=== PATIENT | female | born 1960 | race African-American/Black ===

== ENCOUNTER → 2017-05-14 | Outpatient (CLI) | payer OTHER | LOC: BICMAMMO 13:32 | DX: R92.2 Inconclusive mammogram (principal) | CPT/HCPCS: 77063; 77067 ==

== ENCOUNTER 2017-05-21 13:49 | Outpatient (CLI) | payer OTHER | END 2017-05-21 13:50 | disposition home or self-care (01) | LOC: BICMAMMO 13:49 | PROVIDERS: ATTEND Family Medicine | DX: R92.2 Inconclusive mammogram (principal) | CPT/HCPCS: 77066; G0279 ==

== ENCOUNTER 2017-11-20 14:02 | Outpatient (CLI) | payer OTHER | END 2017-11-20 14:03 | disposition home or self-care (01) | LOC: BICULT 14:02 | DX: R92.8 Other abnormal and inconclusive findings on diagnostic imaging of breast (principal) ==

== ENCOUNTER 2017-12-31 11:05 | Emergency (ER) | payer OTHER ==
[2017-12-31 11:58] LABS: Bilirubin Negative (Negative); Blood, Urine Trace (Negative); Clarity CLEAR (Clear); Glucose, Urine (Dipstick) >=1000 mg/dL (Negative); Leukocyte Negative (Negative); Nitrite Negative (Negative); Protein, Urine (Dipstick) 30 mg/dL (Neg-Trace); Specific Gravity, Urine 1.013 (1.002-1.036)
[2017-12-31 12:04] LABS: Bacteria/HPF None Seen HPF (None Seen); Hyaline Casts/LPF 0-3 HYALINE CAST LPF (0-3 Hyaline); Squamous Epithelial 0-3 HPF (0-3); WBC/HPF None Seen HPF (0-3)
[2017-12-31 12:13] LABS: #Basophils 0.1 thou/uL (0.0-0.2); #Eosinphils 0.2 thou/uL (0.0-0.7); #Lymphocytes 3.7 thou/uL (1.20-3.40); #Monocytes 0.9 thou/uL (0.11-0.59); #Neutrophils 8.2 thou/uL (1.40-6.50); %Basophils 0.7 % (0.0-1.0); %Eosinophils 1.3 % (0.0-10.0); %Lymphocytes 28.2 % (21.0-51.0); %Monocytes 7.1 % (0.0-10.0); %Neutrophils 62.7 % (42.0-75.0); Hemoglobin 13.4 g/dL (12.0-16.0); Mean Corpuscular Hemoglobin 30.1 pg (27.0-31.0); Mean Platelet Volume 9.4 fL (7.4-10.4); Platelet Count 284 thou/uL (130-400); RBC Distribution Width 13.8 % (11.5-14.5); Red Blood Cell (RBC) Count 4.44 mill/uL (4.20-5.40)
[2017-12-31 12:41] LABS: ALT (SGPT) 12 U/L (8-55); AST (SGOT) 14 U/L (5-34); Albumin 4.4 g/dL (3.5-5.0); Alkaline Phosphatase 117 U/L (40-150); Anion Gap 14 mmol/L (10-20); BUN (Urea Nitrogen) 6 mg/dL (9.8-20.1); Bilirubin, Total 0.4 mg/dL (0.2-1.2); Calc. Creatinine Clearance 0 mL/min (70-130); Calcium 9.5 mg/dL (7.8-10.44); Carbon Dioxide 22 mmol/L (22-29); Chloride 104 mmol/L (98-107); Estimated GFR-MDRD 89; Globulin 3.6 g/dL (2.4-3.5); Glucose 265 mg/dL (70-105); Lipase 9 U/L (8-78); Magnesium 2.1 mg/dL (1.6-2.6); Phosphorus 3.1 mg/dL (2.3-4.7); Potassium 4.2 mmol/L (3.5-5.1); Sodium 136 mmol/L (136-145)
--- NOTE | 2017-12-31 13:25 | RAD ---
CHEST TWO VIEWS: 12/31/2017 PROVIDED CLINICAL HISTORY: Cough. COMPARISON: 04/06/2016 FINDINGS: The cardiac and mediastinal silhouette are within normal limits. The lungs appear clear. No pleural fluid or pneumothorax apparent. IMPRESSION: No evidence for an acute cardiopulmonary process. POS: [facility]
--- NOTE | 2018-01-03 15:01 | EKG ---
Test Reason : ABD PAIN Blood Pressure : / mmHG Vent. Rate : 086 BPM Atrial Rate : 086 BPM P-R Int : 170 ms QRS Dur : 068 ms QT Int : 368 ms P-R-T Axes : 052 -25 057 degrees QTc Int : 440 ms Sinus rhythm with marked sinus arrhythmia Left atrial enlargement Low voltage QRS Cannot rule out Anteroseptal infarct , age undetermined Biatrial enlargement Abnormal ECG Confirmed by JOHNNY MEIER, JOSUÉ Bui ([id number]), manager editorial [place] REESE ([id number]) on 01/03/2018 3:00:59 PM Referred By: Confirmed By:JOSUÉ TURNER MD
== END 2017-12-31 13:42 | disposition home or self-care (01) ==
LOC: ERS 11:05
DX: E11.65 Type 2 diabetes mellitus with hyperglycemia (principal); E78.5 Hyperlipidemia, unspecified; F31.9 Bipolar disorder, unspecified; F41.9 Anxiety disorder, unspecified; F17.210 Nicotine dependence, cigarettes, uncomplicated; Z79.84 Long term (current) use of oral hypoglycemic drugs; Z79.899 Other long term (current) drug therapy
CPT/HCPCS: 36416; 71046; 80053; 81003; 81015; 82010; 83690; 83735; 84100; 85025; 93005; 96360

== ENCOUNTER 2018-02-10 13:34 | Outpatient (CLI) | payer OTHER ==
--- NOTE | 2018-02-10 15:00 | RAD ---
LEFT KNEE FOUR VIEWS: HISTORY: Knee pain. COMPARISON: Knee radiographs from 2011. FINDINGS: No acute fracture or malalignment. Satisfactory appearance of left knee arthroplasty. IMPRESSION: No acute abnormality. POS: [facility]
--- NOTE | 2018-02-10 15:01 | RAD ---
FOUR VIEWS RIGHT KNEE: Comparison: 10-29-10 History: Right knee pain. FINDINGS: Four views right knee shows no evidence of acute fracture or dislocation. Patient is status post righ t knee arthroplasty without perihardware lucency or fracture. No knee effusion is present. IMPRESSION: No evidence of acute osseous abnormality. POS: [facility]
--- NOTE | 2018-02-10 15:03 | RAD ---
LUMBAR SPINE THREE VIEWS: History: Low back pain. Comparison: None. FINDINGS: There is moderate narrowing of the L3-4, L4-5, and L5-S1 disc spaces. Moderate facet arthrosis at the se levels. No acute fracture or malalignment. Five non-rib bearing lumbar type vertebrae. Mild degenerative dise ase of both SI joints. Mild vascular calcifications. IMPRESSION: Moderate degenerative spondylosis. POS: [facility]
== END 2018-02-10 13:35 | disposition home or self-care (01) ==
LOC: BICRAD 13:34
PROVIDERS: ATTEND Anesthesiology
DX: M54.5 Low back pain (principal); M25.561 Pain in right knee; M25.562 Pain in left knee; M47.816 Spondylosis without myelopathy or radiculopathy, lumbar region
CPT/HCPCS: 72100

== ENCOUNTER 2018-08-07 23:38 | Emergency (ER) | payer OTHER ==
[2018-08-08 00:24] LABS: #Basophils 0.1 thou/uL (0.0-0.2); #Eosinphils 0.5 thou/uL (0.0-0.7); #Lymphocytes 4.4 thou/uL (1.20-3.40); #Monocytes 0.7 thou/uL (0.11-0.59); #Neutrophils 6.5 thou/uL (1.40-6.50); %Eosinophils 4.4 % (0.0-10.0); %Monocytes 5.6 % (0.0-10.0); Hemoglobin 13.6 g/dL (12.0-16.0); Mean Corpuscular HGB CONC 32.1 g/dL (32.0-36.0); Mean Corpuscular Volume 93.6 fL (78.0-98.0); Mean Platelet Volume 9.9 fL (7.4-10.4); Platelet Count 280 thou/uL (130-400); RBC Distribution Width 13.4 % (11.5-14.5); Red Blood Cell (RBC) Count 4.51 mill/uL (4.20-5.40); White Blood Cell (WBC) Count 12.3 thou/uL (4.8-10.8)
[2018-08-08 00:35] LABS: ALT (SGPT) 32 U/L (8-55); AST (SGOT) 19 U/L (5-34); Albumin 3.9 g/dL (3.5-5.0); Alkaline Phosphatase 222 U/L (40-150); Anion Gap 11 mmol/L (10-20); BUN (Urea Nitrogen) 13 mg/dL (9.8-20.1); Bilirubin, Total 0.2 mg/dL (0.2-1.2); Calc. Creatinine Clearance 0 mL/min (70-130); Calcium 9.6 mg/dL (7.8-10.44); Carbon Dioxide 30 mmol/L (22-29); Chloride 98 mmol/L (98-107); Estimated GFR-MDRD 57; Glucose 500 mg/dL (70-105); Protein, Total 7.9 g/dL (6.0-8.3); Sodium 135 mmol/L (136-145)
[2018-08-08 00:39] LABS: Clarity Clear (Clear); Leukocyte Negative (Negative); Nitrite Negative (Negative); pH, Urine 6.5 (5.0-9.0)
[2018-08-08 00:40] LABS: Bilirubin Negative (Negative); Blood, Urine Negative (Negative); Glucose, Urine (Dipstick) >=1000 mg/dL (Negative); Protein, Urine (Dipstick) Negative (Neg-Trace)
[2018-08-08 01:09] LABS: Hemoglobin A1c 12.4 % (4.0-6.0)
[2018-08-08] MEDS ORDERED: Insulin Regular 300 UNITS/3 ML VIAL ONE (01:30)
--- NOTE | 2018-08-08 07:32 | RAD ---
AP view chest. HISTORY: Hypoglycemia. AP view chest is obtained. The lungs are well aerated. No evidence of active intrathoracic disease se en. No evidence of effusions, pneumonia or pneumothorax seen. IMPRESSION: Unremarkable AP view chest.
--- NOTE | 2018-08-08 08:36 | ULT ---
PRELIMINARY REPORT/[facility]/EMERGENCY AFTER HOURS PROCEDURE: EXAM: US Abdomen Limited, Right Upper Quadrant EXAM DATE/TIME: 08/08/2018 2:26 AM CLINICAL HISTORY: 58 years old, female; Signs and symptoms; Nausea. TECHNIQUE: Imaging protocol: Real-time ultrasound of the abdomen with image documentation. Examination was focused on the right upper quadrant. COMPARISON: No relevant prior studies available. FINDINGS: Liver: Normal. No masses. Gallbladder: Normal. No gallstones. There is no gallbladder wall thickening. Common bile duct: Normal. No stones. No dilation. Pancreas: Visualized pancreas is unremarkable. Right kidney: Normal. No mass. No hydronephrosis. IMPRESSION: No acute findings. Thank you for allowing us to participate in the care of your patient. Dictated and Authenticated by: Milton Gerardo MD 08/08/2018 4:31 AM Central Time ([place] & [place]) FINAL REPORT EMERGENCY AFTER HOURS RIGHT UPPER QUADRANT ULTRASOUND: HISTORY: Nausea. FINDINGS/IMPRESSION: This is the final report. Preliminary exam was performed by [facility]. I concur with the dictation from [facility]. No significant evidence of right upper quadrant pathology seen . The liver, spleen, gallbladder, pancreas, and right kidney are grossly unremarkable. The common bile duct is a normal size of 5 mm. Transcribed Date/Time: 08/08/2018 9:47 AM
== END 2018-08-08 03:58 | disposition home or self-care (01) ==
LOC: ERS 23:38
DX: E11.65 Type 2 diabetes mellitus with hyperglycemia (principal); E78.5 Hyperlipidemia, unspecified; I10 Essential (primary) hypertension; F41.9 Anxiety disorder, unspecified; F17.210 Nicotine dependence, cigarettes, uncomplicated; Z79.899 Other long term (current) drug therapy; Z79.84 Long term (current) use of oral hypoglycemic drugs
CPT/HCPCS: 36415; 36416; 71045; 76705; 80053; 81003; 82010; 83036; 83605; 83880; 83930; 84484; 85025; 87086; 93005; 96360; 96361; J1815

== ENCOUNTER 2018-10-25 13:33 | Emergency (ER) | payer OTHER ==
[2018-10-25 14:12] LABS: #Basophils 0.1 thou/uL (0.0-0.2); #Eosinphils 0.4 thou/uL (0.0-0.7); #Lymphocytes 3.7 thou/uL (1.20-3.40); #Neutrophils 7.6 thou/uL (1.40-6.50); %Basophils 0.8 % (0.0-1.0); %Eosinophils 3.4 % (0.0-10.0); %Lymphocytes 29.1 % (21.0-51.0); %Monocytes 7.6 % (0.0-10.0); %Neutrophils 59.1 % (42.0-75.0); Mean Corpuscular Hemoglobin 28.7 pg (27.0-31.0); Mean Corpuscular Volume 92.7 fL (78.0-98.0); Mean Platelet Volume 8.4 fL (7.4-10.4); Platelet Count 316 thou/uL (130-400); RBC Distribution Width 14.5 % (11.5-14.5); Red Blood Cell (RBC) Count 4.52 mill/uL (4.20-5.40); White Blood Cell (WBC) Count 12.8 thou/uL (4.8-10.8)
[2018-10-25 14:31] LABS: ALT (SGPT) 12 U/L (8-55); AST (SGOT) 9 U/L (5-34); Albumin 3.9 g/dL (3.5-5.0); Alkaline Phosphatase 122 U/L (40-150); Anion Gap 13 mmol/L (10-20); BUN (Urea Nitrogen) 13 mg/dL (9.8-20.1); Bilirubin, Total 0.4 mg/dL (0.2-1.2); Calc. Creatinine Clearance 0 mL/min (70-130); Calcium 9.6 mg/dL (7.8-10.44); Carbon Dioxide 26 mmol/L (22-29); Chloride 98 mmol/L (98-107); Estimated GFR-MDRD 87; Globulin 3.9 g/dL (2.4-3.5); Glucose 271 mg/dL (70-105); Potassium 4.2 mmol/L (3.5-5.1); Protein, Total 7.8 g/dL (6.0-8.3); Sodium 133 mmol/L (136-145)
[2018-10-25 14:38] LABS: Bilirubin Negative (Negative); Blood, Urine Trace (Negative); Clarity Clear (Clear); Glucose, Urine (Dipstick) 70 mg/dL (Negative); Leukocyte Negative Leu/uL (Negative); Nitrite Negative (Negative); Protein, Urine (Dipstick) 30 mg/dL (Neg-Trace); Urobilinogen Normal mg/dL (Less than 2); WBC/HPF 0-3 HPF (0-3)
[2018-10-25 14:46] LABS: Bacteria/HPF Rare-Few HPF (None Seen)
[2018-10-25] MEDS ORDERED: Ketorolac Tromethamine 30 MG/ML VIAL ONE (14:54)
== END 2018-10-25 15:15 | disposition home or self-care (01) ==
LOC: ERS 13:33
DX: K92.2 Gastrointestinal hemorrhage, unspecified (principal); G89.29 Other chronic pain; M25.562 Pain in left knee; M25.561 Pain in right knee; E11.9 Type 2 diabetes mellitus without complications; E78.5 Hyperlipidemia, unspecified; I10 Essential (primary) hypertension; F17.210 Nicotine dependence, cigarettes, uncomplicated; Z79.899 Other long term (current) drug therapy
CPT/HCPCS: 80053; 81003; 81015; 85025; 87086; 96372; 99283; J1885

== ENCOUNTER 2021-04-19 13:21 | Outpatient (CLI) | payer OTHER | END 2021-04-19 13:22 | disposition home or self-care (01) | LOC: BICULT 13:21 | PROVIDERS: ATTEND Internal Medicine Nephrology | DX: N18.9 Chronic kidney disease, unspecified (principal) | CPT/HCPCS: 76770 ==

== ENCOUNTER 2021-10-26 13:22 | Outpatient (CLI) | payer OTHER ==
[~2021-10-26 13:22] MED LIST: Iopamidol 370 76% 100 ML VIAL ONE
== END 2021-10-26 13:23 | disposition home or self-care (01) ==
LOC: CT 13:22
PROVIDERS: ATTEND Urology
DX: R31.29 Other microscopic hematuria (principal)
CPT/HCPCS: 74178; 82565; Q9967

== ENCOUNTER 2021-12-21 13:29 | Outpatient (CLI) | payer OTHER | END 2021-12-21 13:30 | disposition home or self-care (01) | LOC: BICMAMMO 13:29 | PROVIDERS: ATTEND Student in an Organized Health Care Education/Training Program | DX: R92.8 Other abnormal and inconclusive findings on diagnostic imaging of breast (principal) | CPT/HCPCS: 77066; G0279 ==

== ENCOUNTER 2022-01-14 16:00 | Emergency (ER) | payer OTHER ==
[2022-01-14] MEDS ORDERED: Morphine 4 MG/ML VIAL ONE (16:47)
[2022-01-14] MEDS ORDERED: Ondansetron PF 4 MG/2 ML Vial ONE (16:47)
[2022-01-14 17:23] LABS: #Basophils 0.1 thou/uL (0.0-0.2); #Eosinphils 0.4 thou/uL (0.0-0.7); #Lymphocytes 4.1 thou/uL (1.20-3.40); #Monocytes 0.8 thou/uL (0.11-0.59); #Neutrophils 6.4 thou/uL (1.40-6.50); %Basophils 0.9 % (0.0-1.0); %Eosinophils 3.6 % (0.0-10.0); %Lymphocytes 34.5 % (21.0-51.0); %Monocytes 6.8 % (0.0-10.0); %Neutrophils 54.3 % (42.0-75.0); Hemoglobin 10.6 g/dL (12.0-16.0); Mean Corpuscular HGB CONC 30.2 g/dL (32.0-36.0); Mean Corpuscular Hemoglobin 27.1 pg (27.0-31.0); Mean Corpuscular Volume 89.5 fL (78.0-98.0); Mean Platelet Volume 8.8 fL (7.4-10.4); Platelet Count 360 thou/uL (130-400); RBC Distribution Width 15.9 % (11.5-14.5); White Blood Cell (WBC) Count 11.8 thou/uL (4.8-10.8)
[2022-01-14 17:26] LABS: ALT (SGPT) 34 U/L (8-55); AST (SGOT) 25 U/L (5-34); Albumin 3.3 g/dL (3.5-5.0); Alkaline Phosphatase 251 U/L (40-110); Anion Gap 13 mmol/L (10-20); BUN (Urea Nitrogen) 13 mg/dL (9.8-20.1); Bilirubin, Total 0.4 mg/dL (0.2-1.2); CK (CPK) 46 U/L (29-168); Calc. Creatinine Clearance 0 mL/min (70-130); Calcium 9.2 mg/dL (7.8-10.44); Carbon Dioxide 27 mmol/L (22-29); Chloride 104 mmol/L (98-107); Estimated GFR 88; Globulin 4.2 g/dL (2.4-3.5); Glucose 174 mg/dL (70-105); Potassium 4.5 mmol/L (3.5-5.1); Protein, Total 7.5 g/dL (6.0-8.3); Sodium 139 mmol/L (136-145)
[2022-01-14 17:44] LABS: INR-International Normal Ratio 1.1; Prothrombin Time 14.1 sec (12.0-14.7)
[2022-01-14 17:45] LABS: PTT 34.4 sec (22.9-36.1)
[2022-01-14] MEDS ORDERED: HYDROcodone/Acetaminophen 5/325 mg Tablet ONE (18:13)
== END 2022-01-14 18:40 | disposition home or self-care (01) ==
LOC: ERS 16:00
DX: M25.562 Pain in left knee (principal); E11.40 Type 2 diabetes mellitus with diabetic neuropathy, unspecified; I10 Essential (primary) hypertension; E78.00 Pure hypercholesterolemia, unspecified; E11.39 Type 2 diabetes mellitus with other diabetic ophthalmic complication; H42 Glaucoma in diseases classified elsewhere; F17.210 Nicotine dependence, cigarettes, uncomplicated; Z86.73 Personal history of transient ischemic attack (TIA), and cerebral infarction without residual deficits; Z79.899 Other long term (current) drug therapy
CPT/HCPCS: 80053; 82550; 85025; 85610; 85730; 93005; 96374; 96375; J2270; J2405

== ENCOUNTER 2022-06-08 16:39 | Emergency (ER) | payer OTHER | END 2022-06-08 17:40 | disposition home or self-care (01) | LOC: ERS 16:39 | DX: E11.65 Type 2 diabetes mellitus with hyperglycemia (principal); E78.00 Pure hypercholesterolemia, unspecified; I12.9 Hypertensive chronic kidney disease with stage 1 through stage 4 chronic kidney disease, or unspecified chronic kidney disease; N18.1 Chronic kidney disease, stage 1; F17.210 Nicotine dependence, cigarettes, uncomplicated; Z79.899 Other long term (current) drug therapy | CPT/HCPCS: 36416; 99283 ==

== ENCOUNTER 2022-08-10 19:34 | Emergency (ER) | payer OTHER ==
[2022-08-10] MEDS ORDERED: Acetaminophen 500 MG TAB ONE (21:45)
[2022-08-10] MEDS ORDERED: traMADol HCl 50 MG TAB ONE (22:14)
== END 2022-08-10 22:17 | disposition home or self-care (01) ==
LOC: ERS 19:34
DX: R51.9 Headache, unspecified (principal); E16.2 Hypoglycemia, unspecified; T14.8XXA Other injury of unspecified body region, initial encounter; E78.00 Pure hypercholesterolemia, unspecified; F17.210 Nicotine dependence, cigarettes, uncomplicated; E11.22 Type 2 diabetes mellitus with diabetic chronic kidney disease; N18.6 End stage renal disease; I12.9 Hypertensive chronic kidney disease with stage 1 through stage 4 chronic kidney disease, or unspecified chronic kidney disease; W57.XXXA Bitten or stung by nonvenomous insect and other nonvenomous arthropods, initial encounter; W19.XXXA Unspecified fall, initial encounter; Z79.4 Long term (current) use of insulin; Z79.899 Other long term (current) drug therapy
CPT/HCPCS: 70450

== ENCOUNTER 2023-10-14 10:00 | Outpatient (CLI) | payer OTHER | END 2023-10-14 10:01 | disposition home or self-care (01) | LOC: BICULT 10:00 | PROVIDERS: ATTEND Family Medicine | DX: R74.8 Abnormal levels of other serum enzymes (principal); K82.8 Other specified diseases of gallbladder | CPT/HCPCS: 76705 ==

== ENCOUNTER 2024-12-22 18:57 | Emergency (ER) | payer MEDICAID, OTHER ==
[2024-12-22] MEDS ORDERED: HYDROcodone/Acetaminophen 5/325 mg Tablet ONE (20:28)
[2024-12-22] MEDS ORDERED: Cephalexin 250 MG CAP ONE (20:28)
[2024-12-22] MEDS ORDERED: Ibuprofen 200 MG TAB ONE (20:28)
== END 2024-12-22 20:37 | disposition home or self-care (01) ==
LOC: ERS 18:57
DX: N76.4 Abscess of vulva (principal); E11.22 Type 2 diabetes mellitus with diabetic chronic kidney disease; I12.9 Hypertensive chronic kidney disease with stage 1 through stage 4 chronic kidney disease, or unspecified chronic kidney disease; N18.1 Chronic kidney disease, stage 1; Z86.73 Personal history of transient ischemic attack (TIA), and cerebral infarction without residual deficits; F17.210 Nicotine dependence, cigarettes, uncomplicated
CPT/HCPCS: 99282